=== PATIENT | male | born 1935 ===

== ENCOUNTER 2024-04-04 17:34 | Outpatient (REF) | payer MEDICARE, OTHER, SELFPAY ==
[2024-04-02 21:44] LABS: Abs Immature Grans 0.04 10^3/uL (0.0-0.06); Absolute Basophil Count 0.05 10^3/uL (0.0-0.2); Absolute Lymphocyte Count 0.96 10^3/uL (1.2-3.4); Absolute Monocyte Count 0.78 10^3/uL (0.1-0.8); Absolute Neutrophil Count 6.11 10^3/uL (1.2-6.7); Basophils % 0.6 %; Eosinophils % 2.5 %; HCT 32.6 % (40.0-50.0); HGB 10.3 g/dL (13.5-17.5); Immature Grans % 0.5 %; Lymphocytes % 11.8 %; MCH 32.5 pg (27.0-33.0); MCHC 31.6 % (32.0-36.0); MCV 103 fL (80-95); Monocytes % 9.6 %; Platelet Count 245 10^3/uL (130-400); RBC 3.17 10^6/uL (4.36-5.78); RDW 15.7 % (11.8-14.1); RDW-SD 59.2 fL; WBC 8.14 10^3/uL (4.4-10.8)
[2024-04-02 23:03] LABS: Anion Gap 10.9 mmol/L (3-11); BUN 43 mg/dL (7-18); CO2 23.1 mmol/L (21.0-32.0); CREATININE 2.1 mg/dL (0.70-1.30); Chloride 104 mmol/L (98-107); Estimated GFR 29.72 (mL/min/1.73m2); Glucose 146 mg/dL (74-106); Potassium 4.3 mmol/L (3.5-5.1); Sodium 138 mmol/L (136-145); Vitamin D 25 Total 29.4 ng/mL (30-100)
== END 2024-04-04 17:35 | disposition home or self-care (01) ==
LOC: NCHCN 17:34
PROVIDERS: Visit Provider Family Medicine
DX: N18.30 Chronic kidney disease, stage 3 unspecified (principal); D50.0 Iron deficiency anemia secondary to blood loss (chronic); I48.20 Chronic atrial fibrillation, unspecified; I25.10 Atherosclerotic heart disease of native coronary artery without angina pectoris; R79.89 Other specified abnormal findings of blood chemistry; E55.9 Vitamin D deficiency, unspecified
CPT/HCPCS: 80048; 82306; 85025